=== PATIENT | female | born 2000 | race African-American/Black ===

== ENCOUNTER 2024-12-23 20:35 | Emergency (ER) | payer MEDICAID ==
[~2024-12-23] VITALS: Ht 165.1 cm; Wt 77.0 kg
[2024-12-23 20:49] VITALS: O2SAT 99
[2024-12-23 20:55] VITALS: BP 118/87; PULSE 74; RESP 18; TEMP 36.7; O2SAT 99
[2024-12-23 21:35] VITALS: TEMP 98.1
[2024-12-23] MEDS: ACETAMINOPHEN 500MG TABLET PO ONE (21:35)
[2024-12-23] MEDS: TETANUS, DIPHTHERIA, PERTUSSIS VAC/PF 0.5ML (>10YR OLD) IM ONE (21:57)
[2024-12-23] MEDS ORDERED: BO1 TP (22:14)
== END 2024-12-23 22:29 | disposition home or self-care (01) ==
LOC: ER 20:35
DX: T23.202A Burn of second degree of left hand, unspecified site, initial encounter (principal); Z79.899 Other long term (current) drug therapy; Z98.890 Other specified postprocedural states; X08.8XXA Exposure to other specified smoke, fire and flames, initial encounter; Y93.89 Activity, other specified; Y92.89 Other specified places as the place of occurrence of the external cause; Y99.8 Other external cause status
CPT/HCPCS: 90471; 90715; 99283